=== PATIENT | male | born 1985 | race Caucasian/White ===

== ENCOUNTER 2017-01-21 01:09 | Emergency (ER) | payer OTHER, BC ==
[~2017-01-21] VITALS: Ht 188 cm; Wt 68.8 kg
[2017-01-21 01:49] LABS: HEMATOCRIT 43.9 % (38.0-50.0); MCH 31.3 PG (29.0-34.0); MCHC 34.4 G/DL (30.0-36.0); MCV 90.9 FL (86-99); MEAN PLAT.VOLUME 11.3 uM^3 (9.0-12.4); PLATELET COUNT 235 K/uL (156-360); RBC DIS.WIDTH-CV 12.2 % (11.8-14.6); RBC DIS.WIDTH-SD 40.2 % (39-53); RED BLOOD COUNT 4.83 M/uL (4.00-5.50); WHITE BLOOD COUNT 10.2 K/uL (4.1-10.2)
[2017-01-21 01:58] LABS: CHLORIDE 103 mEq/L (99-109); POTASSIUM 4.1 mEq/L (3.7-5.4); SODIUM 141 mEq/L (136-147)
[2017-01-21 02:00] LABS: GLUCOSE 121 mg/dL (70-99)
[2017-01-21 02:02] LABS: ANION GAP 11 MEQ/L (2-14); TOTAL BILIRUBIN 0.3 mg/dL (0.0-1.0)
[2017-01-21 02:04] LABS: ALKALINE PHOSPHATASE 63 IU/L (3-129); GFR ESTIMATE (CALCULATED) > 59 mL/min/
[2017-01-21 02:05] LABS: UREA NITROGEN (BUN) 17 mg/dL (9-23)
[2017-01-21 04:57] LABS: ADD MIUA? NO; BILIRUBIN NEGATIVE; BLOOD NEGATIVE; COLOR YELLOW ((YELLOW)); GLUCOSE (STRIP) NEGATIVE; KETONES NEGATIVE; LEUKOCYTES NEGATIVE; NITRITE NEGATIVE; PROTEIN (STRIP) NEGATIVE; SPECIFIC GRAVITY 1.024 (1.000-1.030); UROBILINOGEN 0.2 MG/DL (0.2-1.0)
[2017-01-21] MEDS ORDERED: PERCOCET 5/31 TABLET PO (04:59)
[2017-01-21 05:54] VITALS: BP 135/87
== END 2017-01-21 06:02 | disposition home or self-care (01) ==
LOC: EME 01:09 → TRA 01:09
PROVIDERS: Emergency Medicine
PROC: 2W38X1Z Immobilization of Right Upper Extremity using Splint (ICD-10-PCS; principal; 2017-01-21)
DX: S42.001A Fracture of unspecified part of right clavicle, initial encounter for closed fracture (principal); S52.021A Displaced fracture of olecranon process without intraarticular extension of right ulna, initial encounter for closed fracture; S50.311A Abrasion of right elbow, initial encounter; V29.9XXA Motorcycle rider (driver) (passenger) injured in unspecified traffic accident, initial encounter
CPT/HCPCS: 71010; 71260; 73080; 74177; 80053; 81003; 85027; 99281; 99285; J1170; J3010; J7030; J7050; L3650